=== PATIENT | male | born 1980 | race American Indian/Alaskan Native ===

== ENCOUNTER 2021-05-28 00:56 | Emergency (ER) | payer SELFPAY ==
[2021-05-28 01:02] VITALS: BP 165/94
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
[2021-05-28] MEDS ORDERED: KETOROLAC 30 MG/1 ML INJ IV ONE (01:44)
[2021-05-28] MEDS ORDERED: ceFAZolin/NS 1 GM/50 ML 1 GM/50 ML BAG IV ONE (01:45)
[2021-05-28 01:47] LABS: Basophils % (Auto) 0.6 % (0.0-1.8); Eosinophils # (Auto) 0.1 K/mm3 (0.0-0.4); Eosinophils % (Auto) 1.7 % (0.0-4.3); Hematocrit 40.6 % (35.5-45.6); Hemoglobin 13.9 gm/dl (11.8-15.2); Lymphocytes # (Auto) 2.7 K/mm3 (1.2-5.4); Lymphocytes % (Auto) 37.2 % (13.4-35.0); Mean Corpuscular HGB Conc 34 % (32-34); Mean Corpuscular Volume 92 fl (84-94); Monocytes # (Auto) 0.8 K/mm3 (0.0-0.8); Monocytes % (Auto) 11.3 % (0.0-7.3); Platelet Count 210 K/mm3 (140-440); Red Blood Count 4.43 M/mm3 (3.65-5.03); Red Cell Distribution Width 12.2 % (13.2-15.2)
[2021-05-28 01:52] LABS: BUN/Creatinine Ratio 18; Blood Urea Nitrogen 16 mg/dL (9-20); Calcium 9.4 mg/dL (8.4-10.2); Hemolysis Index 4
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
[2021-05-28] MEDS ORDERED: SODIUM CHLORIDE 0.9% IRR 1,000 ML BOTTLE IR ONE (03:28)
[2021-05-28] MEDS ORDERED: SODIUM CHLORIDE IRRI 500 ML 1,000 ML IR ONE (03:34)
== END 2021-05-28 06:00 | disposition home or self-care (01) ==
LOC: ED 00:56
DX: S91.332A Puncture wound without foreign body, left foot, initial encounter (principal); W34.09XA Accidental discharge from other specified firearms, initial encounter; Y93.89 Activity, other specified; Y92.89 Other specified places as the place of occurrence of the external cause; Y99.8 Other external cause status
CPT/HCPCS: 36415; 73552; 73590; 80048; 85025; 96365; 96375; 99283; J0690; J1885

== ENCOUNTER 2021-11-07 10:49 | Emergency (ER) | payer SELFPAY ==
--- NOTE | 2021-11-07 12:31 | Emergency Department Report ---
ED Medical Clearance HPI - General Chief complaint: High BP Stated complaint: HEADACHE/BLOOD PRESSURE Time Seen by Provider: 11/07/21 12:19 Source: patient Mode of arrival: Ambulatory - History of Present Illness Initial comments: Chief complaint: "My blood pressure is a little high." HPI: This is a 41-year-old male without significant past medical history who presents with elevated blood pressure during a work physical. 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 He denies headache, blurry vision, chest pain. He is symptom-free. No previous history of hypertension. He cannot recall the blood pressure reading. MD Complaint: medical clearance request Reason for Medical Clearance: other (Elevated blood pressure during work physical) Place: work Traumatic Symptoms: denies traumatic injury Treatments Prior to Arrival: other (Work physical evaluation) Home medications: Previous Rx's Medication Instructions Recorded Last Taken Type HYDROcodone/APAP 5-325 [Cucumber 1 each PO Q6HR PRN #14 tablet 05/28/21 Unknown Rx 5/325] Ketorolac [Toradol] 10 mg PO Q6H PRN #20 tablet 05/28/21 Unknown Rx Sulfamethoxazole/Trimethoprim 1 each PO BID #10 tablet 05/28/21 Unknown Rx [Bactrim DS TAB] Allergies/Adverse reactions: Allergies Allergy/AdvReac Type Severity Reaction Status Date / Time No Known Allergies Allergy Verified 05/28/21 03:33 ED Review of Systems ROS: Stated complaint: HEADACHE/BLOOD PRESSURE Other details as noted in HPI Comment: All other systems reviewed and negative Constitutional: denies: chills, fever, malaise Respiratory: denies: cough, shortness of breath Cardiovascular: denies: chest pain Gastrointestinal: denies: abdominal pain, nausea, vomiting ED Past Medical Hx - Past Medical History Previous Medical History?: Yes Hx Hypertension: Yes - Surgical History Past Surgical History?: Yes Additional Surgical History: L femur - Family History Family history: hypertension - Social History Smoking Status: Current Every Day Smoker Substance Use Type: None - Medications Home Medications: Home Medications Medication Instructions Recorded Confirmed Last Taken Type HYDROcodone/APAP 5-325 [Cucumber 1 each PO Q6HR PRN #14 tablet 05/28/21 Unknown Rx 5/325] Ketorolac [Toradol] 10 mg PO Q6H PRN #20 tablet 05/28/21 Unknown Rx Sulfamethoxazole/Trimethoprim 1 each PO BID #10 tablet 05/28/21 Unknown Rx [Bactrim DS TAB] ED Physical Exam - General Limitations: No Limitations General appearance: alert, in no apparent distress - Head Head exam: Present: atraumatic, normocephalic - Eye Eye exam: Present: normal appearance - ENT ENT exam: Present: mucous membranes moist - Neck Neck exam: Present: normal inspection, full ROM - Respiratory Respiratory exam: Present: normal lung sounds bilaterally. Absent: respiratory distress, wheezes, rales, rhonchi - Cardiovascular Cardiovascular Exam: Present: regular rate, normal rhythm, normal heart sounds. Absent: systolic murmur, diastolic murmur, rubs, gallop - GI/Abdominal GI/Abdominal exam: Present: soft, normal bowel sounds. Absent: distended, tenderness, guarding, rebound - Rectal Rectal exam: Present: deferred - Extremities Exam Extremities exam: Present: normal inspection - Neurological Exam Neurological exam: Present: alert, oriented X3 - Psychiatric Psychiatric exam: Present: normal affect, normal mood - Skin Skin exam: Present: warm, dry, intact, normal color. Absent: rash ED Course Vital Signs 11/07/21 12:09 Temperature 98 F Pulse Rate 100 H Respiratory 16 Rate Blood Pressure 151/94 [Left] O2 Sat by Pulse 100 Oximetry ED Medical Decision Making - Medical Decision Making Asymptomatic hypertension. Patient given referral to internal medicine physician. ED Disposition Clinical Impression: Hypertension Disposition: 01 HOME / SELF CARE / HOMELESS Is pt being admited?: No Does the pt Need Aspirin: No Condition: Stable Instructions: Hypertension (ED), Hypertension, Adult, [id number] Referrals: DENISE MEANS MD [Staff Physician] - 3-5 Days Forms: Work/School Release Form(ED)
[2021-11-07 13:00] VITALS: BP 143/89
== END 2021-11-07 13:00 | disposition home or self-care (01) ==
LOC: ED 10:49
DX: I10 Essential (primary) hypertension (principal); F17.200 Nicotine dependence, unspecified, uncomplicated
CPT/HCPCS: 99282